=== PATIENT | female | born 1950 | race Caucasian/White ===

== ENCOUNTER 2019-05-31 09:21 | Outpatient (CLI) | payer MEDICARE ==
--- NOTE | 2019-05-31 11:00 | BD ---
DEXA BONE DENSITY STUDY: HISTORY: Postmenopausal, osteoporosis. FINDINGS: Lumbar Spine: BMD (g/cm2) L1 0.933 T-Score: -0.5 L2 0.925 T-Score: -0.9 L3 0.948 T-Score: -1.2 L4 0.877 T-Score: -1.7 L1-L4 0.918 T-Score: -1.2 Evidence for osteopenia with increased risk for fracture. Right Femur: Femoral Neck: 0.727 T-Score: -1.1 Total Femur: 0.848 T-Score: -0.8 Evidence for osteopenia with increased for fracture. FRAX SCORE: Major osteoporotic fracture 8.9% and hip fracture 0.9%. POS: RRE
== END 2019-05-31 09:22 | disposition home or self-care (01) ==
LOC: BICMAMMO 09:21
PROVIDERS: ATTEND Obstetrics & Gynecology
DX: Z13.820 Encounter for screening for osteoporosis (principal)
CPT/HCPCS: 77080